=== PATIENT | female | born 1945 | race Caucasian/White ===

== ENCOUNTER 2018-10-27 11:53 | Observation (INO) ==
[2018-10-27 12:50] LABS: Hemoglobin 15.9 gm/dL (12.5-16.0); Mean Cell Volume 86.1 fl (78-100); Mean Corpuscular Hemoglobin 29.8 pg (27-31); Mean Corpuscular Hgb Conc 34.6 g/dl (32-36); Mean Platelet Volume 9.9 fl (8-12.5); Neutrophil # 11.3 K/mm3 (1.3-6.0); Neutrophil % 77.3 % (42-75.0); Platelet Count 387 K/mm3 (150-450); Red Blood Count 5.34 M/mm3 (4.2-5.4); Red Cell Distribution Width 11.9 % (11.5-14.0); White Blood Count 14.7 K/mm3 (4.0-10.5)
[2018-10-27] MEDS ORDERED: NORMAL SALINE 1,000 ML IV ONE (13:02)
[2018-10-27] MEDS ORDERED: INSULIN REGULAR, HUMAN 100 UNITS/ML VIAL IV ONE ×2 (13:03→13:58)
[2018-10-27 13:05] LABS: ALT 24 U/L (19-67); AST 17 U/L (0-48); Alkaline Phosphatase * 151 U/L (50-170); Anion Gap 13.9 mmol/L (6.8-13.8); BUN/Creatinine Ratio 20.8 (9.0-21.6); Bilirubin, Total 0.6 mg/dL (0.0-1.1); Blood Urea Nitrogen 32 mg/dL (3-23); Ca. Corrected For Albumin 9.3 mg/dL (8.4-10.2); Calcium * 9.6 mg/dL (7.9-10.9); Carbon Dioxide 25.6 mmol/L (24-32.6); Chloride 91 mmol/L (97-106); Potassium 4.5 mmol/L (3.4-4.6); Sodium 126 mmol/L (132-142); Total Protein 8.6 gm/dL (6.2-8.2)
[2018-10-27 13:09] LABS: Glucose * 618 mg/dL (70-110)
--- NOTE | 2018-10-27 14:09 | ERNOTE ---
Medical Problem HPI - Narrative Date of Service: 10/27/18 - General Chief Complaint: Diabetes Related Problem Time Seen by Provider: 10/27/18 13:04 Source: patient, family Exam Limitations: no limitations - Immun/Allergies/Home Medications Immunizations: IMMUNIZATION HX Immunizations Up to Date Yes Allergies/Adverse Reactions: Allergies Penicillins Allergy (Severe, Verified 10/27/18 12:07) Hives morphine Adverse Reaction (Mild, Verified 10/27/18 12:07) Nausea Home Medications: HOME MEDICATIONS ALPRAZolam [Xanax] 0.5 mg PO DAILY PRN 10/27/18 [Last Taken Unknown] Atorvastatin Calcium [Lipitor] 80 mg PO DAILY 10/27/18 [Last Taken Unknown] Buspirone HCl 15 mg PO BID 10/27/18 [Last Taken Unknown] Cetirizine HCl [Zyrtec] 10 mg PO DAILY 10/27/18 [Last Taken Unknown] Levothyroxine Sodium [Synthroid] 150 mcg PO DAILY 10/27/18 [Last Taken Unknown] Venlafaxine HCl [Venlafaxine HCl ER] 75 mg PO DAILY 10/27/18 [Last Taken Unknown] traMADol HCL [Tramadol HCl] 50 mg PO TID PRN 10/27/18 [Last Taken Unknown] - History of Present History Narrative: patient presents to ed with c/o of elevated bs, clinic and told her, that her blood sugar was in the six hundreds, has recently had prednisone for a rash , c/o polydyspepiua and poly uria Timing: constant, getting worse Severity: moderate Modifying Factors - (Improves): Present: other - nothing Review of Systems - Review of Systems Constitutional: Present: See HPI, weakness, malaise EYE: Present: no symptoms reported ENT: Present: no symptoms reported Respiratory: Present: no symptoms reported Cardiology: Present: no symptoms reported Gastrointestinal/Abdominal: Present: no symptoms reported Genitourinary: Present: no symptoms reported Musculoskeletal: Present: no symptoms reported Skin: Present: no symptoms reported Neurological: Present: no symptoms reported Endocrine: Present: increased thirst, increased urine Hematologic/Lymphatic: Present: no symptoms reported Psych: Present: no symptoms reported All Other Systems: All systems neg except as marked Medical History (Last Updated 10/27/18 @ 12:08 by Haley Darling RN) Hx of cancer of lung Hx of diabetes mellitus Surgical History: Surgical History (Last Updated 10/27/18 @ 12:08 by Haley Darling RN) History of lobectomy of lung Hx laparoscopic cholecystectomy Hx of heart surgery Family History: Family History (Last Updated 10/27/18 @ 12:09 by Haley Darling RN) Other No pertinent family history Social History: Preferred Language Upper Sorbian Do you have any cheondoism or No cultural preference? Smoking Status Former smoker Alcohol Use none Drug Use none No Social History Section defined Physical Exam - Physical Exam General Appearance: Present: mild distress, anxious Head Exam: Present: normal inspection, no evidence of injury Eye Exam: Normal inspection: bilateral, PERRL: bilateral, EOMI: bilateral Ears, Nose, Throat: Present: normal ENT inspection, normal pharynx Neck: Present: normal inspection, nontender Respiratory: Present: no respiratory distress, normal breath sounds, no accessory muscle use, chest nontender Cardiovascular/Chest: Present: regular rate, rhythm, no murmur, normal peripheral pulses Gastrointestinal/Abdominal: Present: normal bowel sounds, nontender, nondistended, soft, no organomegaly Back Exam: Present: normal inspection, normal range of motion, no CVA tenderness Extremity Exam: Present: normal inspection, non-tender, normal range of motion, no edema Neurological Exam: Present: alert, oriented, normal mood/affect, no motor/sensory deficits Skin Exam: Present: normal color, warm/dry Lymphatic Exam: Present: no adenopathy Progress - Date and Time Seen: Date and Time: 10/27/18 15:09 patient improved, discussed labs with rco and dr mcallister, to be admitted to observation - Results and Orders Patient's Lab Results:: I have reviewed the patient's lab results. - Vital Signs Vital Signs: Vital Signs 10/27/18 12:03 10/27/18 12:06 Temperature 36.6 C 36.6 C Pulse Rate 91 Respiratory Rate 17 17 Blood Pressure 151/66 H 151/66 H O2 Sat by Pulse Oximetry 97 - X-Ray X-Ray #1 X-Ray: chest - no acute process - Progress/Reassessment Chief Complaint: Diabetes Related Problem - Transfer of Care Expected Disposition: Admit Plan - Plan Plan: to admit Departure Clinical Impression: Hyperglycemia due to type 2 diabetes mellitus - Departure Disposition: Still a patient Condition: Stable
[2018-10-27] MEDS ORDERED: NORMAL SALINE 1,000 ML IV PRN ×2 (14:21→20:58)
[2018-10-27 14:54] LABS: Urine Bilirubin Negative (NEGATIVE); Urine Blood Negative /ul (NEGATIVE); Urine Ketone Negative (NEGATIVE); Urine Nitrite Negative (NEGATIVE); Urine Protein Negative (NEGATIVE); Urine Urobilinogen Normal (NORMAL)
[2018-10-27 15:09] LABS: Urine Appearance Clear (CLEAR); Urine Bacteria 1+; Urine Color Yellow; Urine RBC TRACE /hpf (0-5); Urine WBC 0-5 /hpf (0-5)
[2018-10-27] MEDS: NORMAL SALINE 1,000 ML IV PRN ×2 (15:51→19:53)
[2018-10-27] MEDS: INSULIN REGULAR, HUMAN 100 UNITS/ML VIAL SC SCH ×2 (17:17→20:34)
[2018-10-27] MEDS ORDERED: traZODone HCL 50 MG TABLET PO PRN (18:41)
[2018-10-27] MEDS ORDERED: ALPRAZolam 0.5 MG TABLET PO PRN (18:41)
[2018-10-27] MEDS ORDERED: traMADol HCL 50 MG TABLET PO PRN (18:41)
[2018-10-27] MEDS ORDERED: ONDANSETRON 8 MG TAB.RAPDIS PO PRN (18:44)
--- NOTE | 2018-10-27 19:06 | HP ---
Chief Complaint - Chief Complaint Date of Service: 10/27/18 Time of Service: 17:30 Chief Complaint: severe hyperglycemia History of Present Illness: Gill Saldaña is a 72-year-old female who is found to have blood sugars in excess of 500. She was weak and dry and had not been urinating. She was evaluated in the emergency room, rehydrated, given 8 units of insulin twice IV and then is admitted to observation. She had been taking prednisone for an inflammatory condition and this is what raised her blood sugars so dramatically. She only takes a sulfonylurea once a day. She has a history of having been on insulin but was taken off of that some time ago. Medical History (Last Reviewed 10/27/18 @ 15:46 by Marcial Dumont RN) Hx of cancer of lung Hx of diabetes mellitus Surgical History: Surgical History (Last Reviewed 10/27/18 @ 15:46 by Marcial Dumont RN) History of lobectomy of lung Hx laparoscopic cholecystectomy Hx of heart surgery Family History: Family History (Last Reviewed 10/27/18 @ 15:46 by Marcial Dumont RN) Other No pertinent family history Social History: Patient Lives/Resources Home Utilized Occupation Retired Preferred Language Occitan Do you have any evangelical or Yes: [facility] cultural preference? Smoking Status Former smoker Have you smoked in the past 12 No months Do you dip or chew tobacco No Alcohol Use none Drug Use none No Social History Section defined Review Of Systems (GEN) - Review of Systems Generalized/Overall Review: Present: Weakness, Malaise, Fatigue EENTM: Present: No Symptoms Reported Respiratory: Present: Shortness of Breath Cardiac: Present: No Symptoms Reported Abdominal: Present: Nausea. Absent: Vomiting Genitourinary: Present: Oliguria Musculoskeletal: Present: Joint Pain Neurological: Present: No Symptoms Reported Skin: Present: Dryness Endocrine: Present: No Symptoms Reported Misc: All systems neg except as marked - She does have a history of situational stress, major depressive disorder and anxiety. Immunizations: IMMUNIZATION HX Immunizations Up to Date Yes Allergies/Adverse Reactions: Allergies Allergy/AdvReac Type Severity Reaction Status Date / Time Penicillins Allergy Severe Hives Verified 10/27/18 15:46 morphine AdvReac Mild Nausea Verified 10/27/18 15:46 Home Medications: HOME MEDICATIONS ALPRAZolam [Xanax] 0.5 mg PO DAILY PRN 10/27/18 [Last Taken Unknown] Atorvastatin Calcium [Lipitor] 80 mg PO DAILY 10/27/18 [Last Taken Unknown] Buspirone HCl 15 mg PO BID 10/27/18 [Last Taken Unknown] Cetirizine HCl [Zyrtec] 10 mg PO DAILY 10/27/18 [Last Taken Unknown] Levothyroxine Sodium [Synthroid] 150 mcg PO DAILY 10/27/18 [Last Taken Unknown] Venlafaxine HCl [Venlafaxine HCl ER] 75 mg PO DAILY 10/27/18 [Last Taken Unknown] traMADol HCL [Tramadol HCl] 50 mg PO TID PRN 10/27/18 [Last Taken Unknown] traZODone HCL [Trazodone HCl] 50 mg PO HS PRN 10/27/18 [Last Taken Unknown] Exam - Exam Vital Signs: Vital Signs - Last Taken Temp 36.5 C 10/27/18 15:36 Pulse 80 10/27/18 15:56 Resp 18 10/27/18 15:36 BP 138/65 10/27/18 15:36 Pulse Ox 94 10/27/18 15:36 Constitutional: Present: Alert, Oriented x3, Cooperative, Well developed, Well nourished, No distress ENT Exam: Present: normal ENT inspection, hearing grossly normal, pharynx normal, TMs normal Eye Exam: bilateral eye: normal inspection, PERRL, EOMI Neck: Present: non-tender, full range of motion, supple, normal inspection Back Exam: Present: normal inspection, no CVA tenderness Breasts: Present: Exam deferred Respiratory: Present: chest non-tender, lungs clear, normal breath sounds, no respiratory distress, no accessory muscle use Cardiovascular/Chest: Present: normal peripheral pulses, regular rate, rhythm, no chest tenderness, no edema, no gallop, no JVD, no murmur, no rub Peripheral Pulses: carotid (R): 2+, carotid (L): 2+, radial (R): 2+, radial (L): 2+ Abdomen: Present: Normal bowel sounds, soft, nontender, nondistended, no rebound tenderness, no hepatospenomegaly, no masses /Rectal: Present: Exam deferred Extremity: Present: normal range of motion, non-tender, normal inspection, no pedal edema, no calf tenderness Skin Exam: Present: normal color, warm/dry, no cyanosis Lymphatic: Present: no adenopathy 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, normal cerebellar test, no motor/sensory deficits, alert, normal mood/affect, oriented x 3 Appearance: Present: appropriate appearance, appropriate insight, neat, no memory impairment Eye contact: Present: cooperative, good eye contact, normal speech Thoughts: Present: normal thought pattern, no apparent hallucination Diagnostic Studies: Abnormal Lab Results 10/27/18 10/27/18 10/27/18 Range/Units 12:42 12:42 12:42 WBC 14.7 H (4.0-10.5) K/mm3 Immature Gran % (Auto) 1.10 H (0.001-0.429) % Immature Gran # (Auto) 0.16 H (0.000-0.0310) K/mm3 Neutrophils % 77.3 H (42-75.0) % Lymphocytes % 12.1 L (20-51) % Neutrophils # 11.3 H (1.3-6.0) K/mm3 Monocytes # 1.1 H (0.0-1.0) k/mm3 HCO3 (21.0-28.0) mmol/L Base Excess (-2.0-3.0) mmol/L VBG pH 7.260 L (7.32-7.43) Sodium 126 L (132-142) mmol/L Chloride 91 L (97-106) mmol/L Anion Gap 13.9 H (6.8-13.8) mmol/L BUN 32 H (3-23) mg/dL Creatinine 1.54 H (0.4-1.4) mg/dL Est GFR (Non-Af Amer) 35 L (60-130) mL/min Random Glucose 618 H* (70-110) mg/dL Total Protein 8.6 H (6.2-8.2) gm/dL Urine Glucose (UA) (NEGATIVE) mg/dL Ur Leukocyte Esterase (NEGATIVE) /ul Urine Bacteria (NONE) 10/27/18 10/27/18 10/27/18 Range/Units 13:00 14:49 15:15 WBC (4.0-10.5) K/mm3 Immature Gran % (Auto) (0.001-0.429) % Immature Gran # (Auto) (0.000-0.0310) K/mm3 Neutrophils % (42-75.0) % Lymphocytes % (20-51) % Neutrophils # (1.3-6.0) K/mm3 Monocytes # (0.0-1.0) k/mm3 HCO3 18.2 L (21.0-28.0) mmol/L Base Excess -6.2 L (-2.0-3.0) mmol/L VBG pH (7.32-7.43) Sodium (132-142) mmol/L Chloride (97-106) mmol/L Anion Gap (6.8-13.8) mmol/L BUN (3-23) mg/dL Creatinine (0.4-1.4) mg/dL Est GFR (Non-Af Amer) (60-130) mL/min Random Glucose 333 H D (70-110) mg/dL Total Protein (6.2-8.2) gm/dL Urine Glucose (UA) >=1000 H (NEGATIVE) mg/dL Ur Leukocyte Esterase 25 H (NEGATIVE) /ul Urine Bacteria 1+ H (NONE) Laboratory Results WBC 14.7 K/mm3 (4.0-10.5) H 10/27/18 12:42 RBC 5.34 M/mm3 (4.2-5.4) 10/27/18 12:42 Hgb 15.9 gm/dL (12.5-16.0) 10/27/18 12:42 Hct 46.0 % (37.0-47.0) 10/27/18 12:42 MCV 86.1 fl (78-100) 10/27/18 12:42 MCH 29.8 pg (27-31) 10/27/18 12:42 MCHC 34.6 g/dl (32-36) 10/27/18 12:42 RDW 11.9 % (11.5-14.0) 10/27/18 12:42 Plt Count 387 K/mm3 (150-450) 10/27/18 12:42 MPV 9.9 fl (8-12.5) 10/27/18 12:42 Immature Gran % (Auto) 1.10 % (0.001-0.429) H 10/27/18 12:42 Immature Gran # (Auto) 0.16 K/mm3 (0.000-0.0310) H 10/27/18 12:42 Neutrophils % 77.3 % (42-75.0) H 10/27/18 12:42 Lymphocytes % 12.1 % (20-51) L 10/27/18 12:42 Monocytes % 7.3 % (0.0-9) 10/27/18 12:42 Eosinophils % 1.4 % (0.0-3.0) 10/27/18 12:42 Basophils % 0.8 % (0.0-1.0) 10/27/18 12:42 Nucleated RBC % 0.0 k/mm3 (0-1) 10/27/18 12:42 Neutrophils # 11.3 K/mm3 (1.3-6.0) H 10/27/18 12:42 Lymphocytes # 1.77 k/mm3 (1.5-3.5) 10/27/18 12:42 Monocytes # 1.1 k/mm3 (0.0-1.0) H 10/27/18 12:42 Eosinophils # 0.2 k/mm3 (0.0-0.7) 10/27/18 12:42 Absolute Basophils 0.1 k/mm3 (0.0-0.1) 10/27/18 12:42 pCO2 32.9 mmHg (32.0-45.0) 10/27/18 13:00 pO2 88.1 mmHg (83.0-108.0) 10/27/18 13:00 HCO3 18.2 mmol/L (21.0-28.0) L 10/27/18 13:00 Total CO2 19.2 mmol/L (19.0-24.0) 10/27/18 13:00 Base Excess -6.2 mmol/L (-2.0-3.0) L 10/27/18 13:00 ABG pH 7.36 (7.35-7.45) 10/27/18 13:00 ABG O2 Sat (Measured) 96.5 % (94.0-98.0) 10/27/18 13:00 VBG pH 7.260 (7.32-7.43) L 10/27/18 12:42 Sodium 126 mmol/L (132-142) L 10/27/18 12:42 Plasma Sodium 134 mmol/L (130-142) 10/27/18 12:42 Potassium 4.5 mmol/L (3.4-4.6) 10/27/18 12:42 Chloride 91 mmol/L (97-106) L 10/27/18 12:42 Carbon Dioxide 25.6 mmol/L (24-32.6) 10/27/18 12:42 Anion Gap 13.9 mmol/L (6.8-13.8) H 10/27/18 12:42 BUN 32 mg/dL (3-23) H 10/27/18 12:42 Creatinine 1.54 mg/dL (0.4-1.4) H 10/27/18 12:42 Est GFR (Non-Af Amer) 35 mL/min (60-130) L 10/27/18 12:42 BUN/Creatinine Ratio 20.8 (9.0-21.6) 10/27/18 12:42 Random Glucose 333 mg/dL (70-110) H D 10/27/18 15:15 Calcium 9.6 mg/dL (7.9-10.9) 10/27/18 12:42 Calcium Adj for Albumin 9.3 mg/dL (8.4-10.2) 10/27/18 12:42 Total Bilirubin 0.6 mg/dL (0.0-1.1) 10/27/18 12:42 AST 17 U/L (0-48) 10/27/18 12:42 ALT 24 U/L (19-67) 10/27/18 12:42 Alkaline Phosphatase 151 U/L (50-170) 10/27/18 12:42 Total Protein 8.6 gm/dL (6.2-8.2) H 10/27/18 12:42 Albumin 4.0 gm/dl (3.4-5.0) 10/27/18 12:42 Urine Color Yellow 10/27/18 14:49 Urine Appearance Clear (CLEAR) 10/27/18 14:49 Urine pH 6.0 pH (5.0-7.0) 10/27/18 14:49 Ur Specific [place] 1.010 SP.GR. (1.005-1.010) 10/27/18 14:49 Urine Protein Negative mg/dL (NEGATIVE) 10/27/18 14:49 Urine Glucose (UA) >=1000 mg/dL (NEGATIVE) H 10/27/18 14:49 Urine Ketones Negative mg/dL (NEGATIVE) 10/27/18 14:49 Urine Blood Negative /ul (NEGATIVE) 10/27/18 14:49 Urine Nitrate Negative (NEGATIVE) 10/27/18 14:49 Urine Bilirubin Negative mg/dl (NEGATIVE) 10/27/18 14:49 Urine Urobilinogen Normal EU/dl (NORMAL) 10/27/18 14:49 Ur Leukocyte Esterase 25 /ul (NEGATIVE) H 10/27/18 14:49 Urine RBC Trace /hpf (0-5) 10/27/18 14:49 Urine WBC 0-5 /hpf (0-5) 10/27/18 14:49 Ur Epithelial Cells Trace /hpf (0-5) 10/27/18 14:49 Urine Bacteria 1+ (NONE) H 10/27/18 14:49 Urine Culture Comments Culture to follow 10/27/18 14:49 Serum Ketones Negative (NEGATIVE) 10/27/18 12:42 Assessment/Plan - Narrative Narrative: 1. Monitor blood glucose. 2. Start back on [place] per id. tomorrow morning 3. Check blood sugar now to determine whether more short acting insulin may be required 4. Progress activity and diet as tolerated - Assessment/Plan (1) Hyperglycemia due to type 2 diabetes mellitus Problem: Acute (2) Dehydration Problem: Acute (3) Lightheadedness Problem: Acute
[2018-10-27] MEDS: busPIRone HCL 5 MG TABLET PO SCH (20:38)
[2018-10-27] MEDS: ACETAMINOPHEN 500 MG TABLET PO PRN (21:43)
[2018-10-28 05:23] LABS: Hematocrit 39.2 % (37.0-47.0); Hemoglobin 13.6 gm/dL (12.5-16.0); Mean Cell Volume 87.1 fl (78-100); Mean Corpuscular Hemoglobin 30.2 pg (27-31); Mean Corpuscular Hgb Conc 34.7 g/dl (32-36); Mean Platelet Volume 9.5 fl (8-12.5); Neutrophil # 8.2 K/mm3 (1.3-6.0); Neutrophil % 67.4 % (42-75.0); Platelet Count 324 K/mm3 (150-450); Red Cell Distribution Width 11.9 % (11.5-14.0); White Blood Count 12.2 K/mm3 (4.0-10.5)
[2018-10-28 05:27] LABS: Anion Gap 9.3 mmol/L (6.8-13.8); BUN/Creatinine Ratio 21.2 (9.0-21.6); Carbon Dioxide 25.8 mmol/L (24-32.6); Estimated Creat Clear 39.9; Potassium 4.1 mmol/L (3.4-4.6)
[2018-10-28] MEDS: INSULIN REGULAR, HUMAN 100 UNITS/ML VIAL SC SCH ×2 (06:49→12:02)
[2018-10-28] MEDS ORDERED: LEVOTHYROXINE SODIUM 100 MCG TABLET ONE (06:52)
[2018-10-28] MEDS ORDERED: LEVOTHYROXINE SODIUM 50 MCG TABLET ONE (06:52)
[2018-10-28] MEDS: ACETAMINOPHEN 500 MG TABLET PO PRN (06:53)
[2018-10-28] MEDS: LEVOTHYROXINE SODIUM 150 MCG TABLET PO SCH ×2 (06:53→06:56)
[2018-10-28] MEDS ORDERED: GLIMEPIRIDE 4 MG TABLET PO SCH (09:00)
[2018-10-28] MEDS ORDERED: LORATADINE 10 MG TABLET PO SCH (09:00)
[2018-10-28] MEDS ORDERED: VENLAFAXINE HCL 37.5 MG CAP.SR.24H PO SCH (09:00)
[2018-10-28] MEDS: busPIRone HCL 5 MG TABLET PO SCH (09:04)
--- NOTE | 2018-10-28 11:18 | DS ---
(1) Hyperglycemia due to type 2 diabetes mellitus Problem: Acute Qualifiers: Diabetes mellitus senior care insulin use: without buttermaker continuous churn use Qualified Code(s): E11.65 - Type 2 diabetes mellitus with hyperglycemia (2) Dehydration Problem: Resolved (3) Lightheadedness Problem: Resolved Description of Stay: Gill aSldaña is a 72-year-old female admitted with dehydration, weakness, lightheadedness, and hyperglycemia. She has been given IV fluids and is rehydrated. She's feeling a lot better. Her lightheadedness seems to be gone and her weakness improved. Her blood sugars are down to 197 this morning. She is establishing with a new PCP and will be seeing that provider within the next couple of weeks. I will continue her on oral medications at this time but I discussed the probability that she will need to be on insulin. She has taken insulin in the past and her blood sugars were better controlled. She hasn't taken it for over a year. Procedures Performed: none Results and Findings: Pending Mircobiology Results 10/27/18 14:45 Urine,Voided Urine Culture - Preliminary Ruling Out Pathogen Lab Pending Results 10/27/18 12:42: WBC 14.7 H, RBC 5.34, Hgb 15.9, Hct 46.0, MCV 86.1, MCH 29.8, MCHC 34.6, RDW 11.9, Plt Count 387, MPV 9.9, Immature Gran % (Auto) 1.10 H, Immature Gran # (Auto) 0.16 H, Neutrophils % 77.3 H, Lymphocytes % 12.1 L, Monocytes % 7.3, Eosinophils % 1.4, Basophils % 0.8, Nucleated RBC % 0.0, Hiren trophils # 11.3 H, Lymphocytes # 1.77, Monocytes # 1.1 H, Eosinophils # 0.2, Absolute Basophils 0.1 10/27/18 12:42: VBG pH 7.260 L 10/27/18 12:42: Sodium 126 L, Plasma Sodium 134, Potassium 4.5, Chloride 91 L, Carbon Dioxide 25.6, Anion Gap 13.9 H, BUN 32 H, Creatinine 1.54 H, Est GFR (Non-Af Amer) 35 L, BUN/Creatinine Ratio 20.8, Random Glucose 618 H*, Calcium 9.6, Calcium Adj for Albumin 9.3, Total Bilirubin 0.6, AST 17, ALT 24, Alkaline Phosphatase 151, Total Protein 8.6 H, Albumin 4.0, Serum Ketones Negative 10/27/18 13:00: pCO2 32.9, pO2 88.1, HCO3 18.2 L, Total CO2 19.2, Base Excess - 6.2 L, ABG pH 7.36, ABG O2 Sat (Measured) 96.5 10/27/18 14:49: Urine Color Yellow, Urine Appearance Clear, Urine pH 6.0, Ur Specific [place] 1.010, Urine Protein Negative, Urine Glucose (UA) >=1000 H, Urine Ketones Negative, Urine Blood Negative, Urine Nitrate Negative, Urine Bilirubin Negative, Urine Urobilinogen Normal, Ur Leukocyte Esterase 25 H, Urine RBC Trace, Urine WBC 0-5, Ur Epithelial Cells Trace, Urine Bacteria 1+ H, Urine Culture Comments Culture to follow 10/27/18 15:15: Random Glucose 333 H D 10/28/18 05:05: WBC 12.2 H, RBC 4.50, Hgb 13.6, Hct 39.2, MCV 87.1, MCH 30.2, MCHC 34.7, RDW 11.9, Plt Count 324, MPV 9.5, Immature Gran % (Auto) 0.90 H, Immature Gran # (Auto) 0.11 H, Neutrophils % 67.4, Lymphocytes % 20.1, Monocytes % 7.7, Eosinophils % 3.4 H, Basophils % 0.5, Nucleated RBC % 0.0, Neutrophils # 8.2 H, Lymphocytes # 2.46, Monocytes # 0.9, Eosinophils # 0.4, Absolute Basophils 0.1 10/28/18 05:05: Sodium 139, Plasma Sodium 141, Potassium 4.1, Chloride 108 H, Carbon Dioxide 25.8, Anion Gap 9.3, BUN 22, Creatinine 1.04, Est GFR (Non-Af Amer) 55 L D, BUN/Creatinine Ratio 21.2, Random Glucose 197 H D, Calcium 8.0 Discharge Location: Home Disposition: Home self-care Condition: Stable Discharge Activity: Activity as tolerated Discharge Diet: Consistent carbs Referrals: Navin Cosby MD [Primary Care Provider] - Additional Patient Instructions (free text): Make an appointment to see your new PCP within the next 2 weeks.-Please make TCM appointment unless penitentiary discharge. Thank you! Crystal @ [phone]. Complete Home Medications List: Complete Home Medication List: ALPRAZolam [Xanax] 0.5 mg PO DAILY PRN 10/27/18 Atorvastatin Calcium [Lipitor] 80 mg PO DAILY 10/27/18 Buspirone HCl 15 mg PO BID 10/27/18 Cetirizine HCl [Zyrtec] 10 mg PO DAILY 10/27/18 Venlafaxine HCl [Venlafaxine HCl ER] 75 mg PO DAILY 10/27/18 traMADol HCL [Tramadol HCl] 50 mg PO TID PRN 10/27/18 traZODone HCL [Trazodone HCl] 50 mg PO HS PRN 10/27/18 Acetaminophen [Tylenol] 500 mg PO Q6H PRN tab 10/28/18 Glimepiride [Amaryl] 8 mg PO DAILY #60 tab 10/28/18 Ondansetron [Zofran Odt] 8 mg PO Q6H PRN tab.rapdis 10/28/18
[2018-10-28 14:45] VITALS: BP 148/65
== END 2018-10-28 14:49 | disposition home or self-care (01) ==
LOC: ER 11:53 → MS 14:46 → INTOOBSV 14:46 → MS 15:30
PROVIDERS: ADMIT Family Medicine; ATTEND Family Medicine
CPT/HCPCS: 36415; 36600; 80048; 80053; 81001; 82009; 82800; 82803; 82947; 85025; 87077; 87086; 87186; 93005; 96360; 96361; 96372; 99285; G0378

== ENCOUNTER 2019-11-17 13:04 | Inpatient (IN) ==
[2019-11-17 13:35] LABS: Hematocrit 38.6 % (37.0-47.0); Hemoglobin 13.2 gm/dL (12.5-16.0); Mean Cell Volume 89.1 fl (78-100); Mean Corpuscular Hemoglobin 30.5 pg (27-31); Mean Corpuscular Hgb Conc 34.2 g/dl (32-36); Mean Platelet Volume 8.9 fl (8-12.5); Neutrophil # 7.8 K/mm3 (1.3-6.0); Neutrophil % 71.1 % (42-75.0); Platelet Count 384 K/mm3 (150-450); Red Blood Count 4.33 M/mm3 (4.2-5.4); Red Cell Distribution Width 12.4 % (11.5-14.0)
[2019-11-17 13:38] LABS: Urine Bilirubin 1 mg/dl (NEGATIVE); Urine Blood Negative /ul (NEGATIVE); Urine Ketone 15 mg/dL (NEGATIVE); Urine Nitrite Negative (NEGATIVE); Urine Protein 30 mg/dL (NEGATIVE); Urine Specific Gravity 1.025 SP.GR. (1.005-1.010); Urine Urobilinogen Normal (NORMAL)
[2019-11-17 13:48] LABS: Urine Color Yellow
[2019-11-17 13:49] LABS: Urine Appearance Cloudy (CLEAR); Urine Bacteria 3+; Urine RBC None Seen /hpf (0-5); Urine WBC 25-50 /hpf (0-5)
[2019-11-17 13:51] LABS: ALT 14 U/L (19-67); AST 17 U/L (0-48); Albumin * 3.3 gm/dl (3.4-5.0); Alkaline Phosphatase * 96 U/L (50-170); Anion Gap 18.1 mmol/L (6.8-13.8); BUN/Creatinine Ratio 16.8 (9.0-21.6); Bilirubin, Total 0.5 mg/dL (0.0-1.1); Blood Urea Nitrogen 25 mg/dL (3-23); Ca. Corrected For Albumin 8.9 mg/dL (8.4-10.2); Calcium * 8.7 mg/dL (7.9-10.9); Chloride 99 mmol/L (97-106); Glucose * 206 mg/dL (70-110); Magnesium 0.9 mg/dL (1.2-2.8); Potassium 4.1 mmol/L (3.4-4.6); Sodium 137 mmol/L (132-142); Total Protein 7.6 gm/dL (6.2-8.2)
[2019-11-17] MEDS ORDERED: NORMAL SALINE 1,000 ML IV ONE ×3 (14:05→16:08)
[2019-11-17] MEDS ORDERED: cefTRIAXone SODIUM 1,000 MG/100 ML BAG IV ONE (14:06)
[2019-11-17] MEDS ORDERED: NORMAL SALINE IV ONE ×2 (14:06→14:23)
[2019-11-17] MEDS ORDERED: ONDANSETRON HCL/PF 2 MG/ML VIAL IV ONE (14:13)
--- NOTE | 2019-11-17 14:22 | ERNOTE ---
Neuro HPI ER Record Presenting Symptoms: weakness, confusion Time Seen by Provider: 11/17/19 13:14 Source: patient, family Exam Limitations: clinical condition Immunizations: IMMUNIZATION HX Immunizations Up to Date Yes History of Influenza Vaccine Yes Hx Pneumococcal Vaccination Yes Allergies/Adverse Reactions: Allergies Allergy/AdvReac Type Severity Reaction Status Date / Time Penicillins Allergy Severe Hives Verified 03/10/19 13:27 morphine AdvReac Mild Nausea Verified 03/10/19 13:27 Home Medications: HOME MEDICATIONS Atorvastatin Calcium [Lipitor] 80 mg PO DAILY 10/27/18 [Last Taken 02/24/19] traMADol HCL [Tramadol HCl] 50 mg PO BID 10/27/18 [Last Taken 02/24/19] Aspirin [Aspirin Chewable] 81 mg PO DAILY 11/17/19 [Last Taken Unknown] Levothyroxine Sodium [Synthroid] 75 mcg PO DAILY 11/17/19 [Last Taken Unknown] Metoprolol Tartrate [Lopressor] 25 mg PO BID 11/17/19 [Last Taken Unknown] glipiZIDE [Glipizide] 10 mg PO HS 11/17/19 [Last Taken Unknown] glipiZIDE [Glipizide] 20 mg PO DAILY 11/17/19 [Last Taken Unknown] - History of Present Illness Narrative: Daughter states that for approximately the last 24 hours her mother has not been feeling well. However starting today she is gotten progressively more confused and not very responsive. Onset: gradual onset Severity: severe - Character of Deficits Additional Deficits: Present: decrease ability to stand Baseline Cognition: Present: alert, oriented x 4 Baseline Gait: Present: walks w/o assistance Associated Symptoms: Denies: fever/chills Review of Systems - Review of Systems Constitutional: Present: See HPI EYE: Present: no symptoms reported ENT: Present: no symptoms reported Respiratory: Present: no symptoms reported Cardiology: Present: no symptoms reported Gastrointestinal/Abdominal: Present: no symptoms reported Genitourinary: Present: no symptoms reported Musculoskeletal: Present: no symptoms reported Skin: Present: no symptoms reported Neurological: Present: See HPI Endocrine: Present: no symptoms reported Hematologic/Lymphatic: Present: no symptoms reported Psych: Present: no symptoms reported Medical History (Last Reviewed 11/17/19 @ 14:05 by Haley Darling RN) Anxiety Coronary artery disease High cholesterol Hx of cancer of lung Hx of diabetes mellitus Left shoulder pain Onset Date: Unknown Surgical History: Surgical History (Last Reviewed 11/17/19 @ 14:05 by Haley Darling RN) History of lobectomy of lung Hx laparoscopic cholecystectomy Hx of heart surgery S/P trigger finger release Onset Date: 02/25/19 left thumb-Dr. Mason S/P triple vessel bypass Family History: Family History (Last Reviewed 11/17/19 @ 14:05 by Haley Darling RN) Father Myocardial infarction Mother Diabetes Other No pertinent family history Social History: (Last Reviewed 11/17/19 @ 14:05 by Haley Darling RN) Social History: Marital status: / household members: none current occupational status: retired Highest education level completed: high school graduate Service: No Tobacco: Smoking Status: Former smoker Alcohol: alcohol intake: never Substance Use: substance use type: does not use Dietary Habits: caffeine: No Physical Exam - Physical Exam General Appearance: Present: wd/wn, alert, moderate distress Head Exam: Present: normal inspection, no evidence of injury Eye Exam: Normal inspection: bilateral, PERRL: bilateral Ears, Nose, Throat: Present: normal pharynx, dry mucous membranes Neck: Present: normal inspection, nontender Respiratory: Present: no respiratory distress, normal breath sounds, no accessory muscle use, chest nontender, lungs clear, other - Tachypneic Cardiovascular/Chest: Present: regular rate, rhythm, no murmur, normal peripheral pulses Gastrointestinal/Abdominal: Present: normal bowel sounds, nontender, nondistended, soft, no organomegaly Rectal Exam: Present: deferred Back Exam: Present: normal inspection, normal range of motion Extremity Exam: Present: normal inspection, non-tender, no edema, normal range of motion Neurological Exam: Present: disoriented to person Skin Exam: Present: normal color, warm/dry Lymphatic Exam: Present: no adenopathy Progress - Results and Orders Patient's Lab Results:: I have reviewed the patient's lab results. - Vital Signs Patient's Vital Signs:: I have reviewed the patient's vital signs. Vital Signs: Vital Signs 11/17/19 13:05 11/17/19 13:18 11/17/19 13:19 Temperature 36.9 C Pulse Rate 94 100 90 Respiratory Rate 37 H 22 H Blood Pressure 158/63 H O2 Sat by Pulse Oximetry 100 100 - X-Ray X-Ray #1 X-Ray: chest Interpretation: Reviewed by me - CT/Ultrasound CT/Ultrasound Narrative: CT the head was reviewed by me - Progress/Reassessment Chief Complaint: Altered Mental Status Plan - Plan Plan: Patient will be admitted to a medical monitored bed to continue antibiotics and the sepsis IV fluids protocol. Departure Clinical Impression: Sepsis Qualifiers: Sepsis type: sepsis due to unspecified organism Sepsis acute organ dysfunction status: without acute organ dysfunction Qualified Code(s): A41.9 - Sepsis, unspecified organism UTI (urinary tract infection) Qualifiers: Urinary tract infection type: acute pyelonephritis Qualified Code(s): N10 - Acute pyelonephritis - Departure Disposition: Still a patient Condition: Fair Referrals: Navin Cosby MD [Primary Care Provider] - Critical Care Note - Critical Care Note Total Time (mins): 35 Comments: Patient appears to have evolving sepsis secondary to her UTI. She was given the sepsis IV fluid protocol will be started on IV antibiotics
[2019-11-17] MEDS ORDERED: ACETAMINOPHEN 325 MG TABLET PO PRN (16:02)
--- NOTE | 2019-11-17 16:20 | HP ---
Chief Complaint - Chief Complaint Date of Service: 11/17/19 Time of Service: 16:13 Chief Complaint: Altered Mental Status History of Present Illness: 73 y/o F with PMHX of CAD s/p triple vessel bypass, NIDDM Type II, HTN, HLD, MDD, & GABRIEL Admitted for Sepsis most likely secondary to UTI and suspected Community Acquired Pneumonia. Daughter is at bedside and she is the historian. States she has not seen her mother in 2 weeks, but when she returned, mother had spent the last 3 days sleeping, decreased appetite and NBNB emesis. When she was about to leave the house and bring her to the ER, patient started to appear confused and searching for random stuff, followed by expressive aphasia, described as jumbled words. No other neurological deficits appreciated. On arrival to the ER, patient was normotensive, tachypneic (22), afebrile with a HR < 100bpm, SpO2 @ 98-100 on RA . Patient was worked up for acute CVA and infection. CT head ruled out acute bleed. Labs obtain were significant for Lactic Acid of 3.0, [place] [address], Hyperglycemia of 204, Dehydration due to and mild increase in Cr from baseline of 1.30 to 1.43, ABG showed pCO2 of 16, UA demonstrated infection and CXR suggested small left sided pleural effusion. Due to her presention and an increased anion gap along with her history of NIDDM Type II, DKA was ruled out, no ketones appreciated on labs. Managed and fluid resuscitated according to sepsis protocol, and started on Rocephin 1 gram. On arrival to the floor, BP was 177/85, remaining VSS, and breathing in not labored, however patient is hard to understand. Appears as patient was c/o CP, daughter stated earlier patient has described pain in her chest and left arm. STAT EKG, Cardiac Panel ordered, given aspirin 325 mg and Nitro SL. Complete Neurological exam completed and significant for expressive aphasia with NIHSS of 1. This could be most likely AMS due to Sepsis. Remaining PE was largely unremarkable. Discussed management to both daughter and patient and voiced understanding. Medical History (Last Reviewed 11/17/19 @ 15:40 by Marcial Dumont RN) Anxiety Coronary artery disease High cholesterol Hx of cancer of lung Hx of diabetes mellitus Left shoulder pain Onset Date: Unknown Surgical History: Surgical History (Last Reviewed 11/17/19 @ 15:40 by Marcial Dumont RN) History of lobectomy of lung Hx laparoscopic cholecystectomy Hx of heart surgery S/P trigger finger release Onset Date: 02/25/19 left thumb-Dr. Mason S/P triple vessel bypass Family History: Family History (Last Reviewed 11/17/19 @ 15:05 by Mary Ellen Jaramillo RN) Father Myocardial infarction Mother Diabetes Other No pertinent family history Social History: (Last Reviewed 11/17/19 @ 15:06 by Mary Ellen Jaramillo RN) Social History: Marital status: / household members: none current occupational status: retired Highest education level completed: high school graduate Service: No Tobacco: Smoking Status: Former smoker Alcohol: alcohol intake: never Substance Use: substance use type: does not use Dietary Habits: caffeine: No Review Of Systems (GEN) - Review of Systems Generalized/Overall Review: Present: Weakness, Fatigue Respiratory: Absent: Cough, Shortness of Breath, Orthopnea Cardiac: Present: Chest Pain. Absent: Edema, Palpitations Abdominal: Present: Nausea, Vomiting. Absent: Abdominal Pain, Constipation, Diarrhea Genitourinary: Present: Incontinent. Absent: Burning, Itching, Urgency, Frequency Musculoskeletal: Absent: Joint Pain, Back Pain, Joint Swelling Neurological: Present: Headache, Anxiety, Depressed, Emotional Problems, Weakness. Absent: Pre-existing Deficit Skin: Present: Dryness Endocrine: Present: Intolerance to Cold Immunizations: IMMUNIZATION HX Immunizations Up to Date Yes History of Influenza Vaccine Yes Hx Pneumococcal Vaccination Yes Allergies/Adverse Reactions: Allergies Allergy/AdvReac Type Severity Reaction Status Date / Time Penicillins Allergy Severe Hives Verified 11/17/19 15:06 morphine AdvReac Mild Nausea Verified 11/17/19 15:06 Home Medications: HOME MEDICATIONS Atorvastatin Calcium [Lipitor] 80 mg PO DAILY 10/27/18 [Last Taken 02/24/19] traMADol HCL [Tramadol HCl] 50 mg PO BID 10/27/18 [Last Taken 02/24/19] Aspirin [Aspirin Chewable] 81 mg PO DAILY 11/17/19 [Last Taken Unknown] Levothyroxine Sodium [Synthroid] 75 mcg PO DAILY 11/17/19 [Last Taken Unknown] Metoprolol Tartrate [Lopressor] 25 mg PO BID 11/17/19 [Last Taken Unknown] Venlafaxine HCl [Venlafaxine HCl ER] 150 mg PO DAILY 11/17/19 [Last Taken Unknown] glipiZIDE [Glipizide] 10 mg PO HS 11/17/19 [Last Taken Unknown] glipiZIDE [Glipizide] 20 mg PO DAILY 11/17/19 [Last Taken Unknown] metFORMIN HCL [Metformin ER Osmotic] 500 mg PO BID 11/17/19 [Last Taken Unknown] Exam - Exam Vital Signs: Vital Signs - Last Taken Temp 36.6 C 11/17/19 15:06 Pulse 101 H 11/17/19 15:47 Resp 18 11/17/19 15:06 BP 171/85 H 11/17/19 15:06 Pulse Ox 100 11/17/19 15:06 Constitutional: Present: Alert, Oriented x3, Cooperative, Elderly ENT Exam: Present: hearing grossly normal Eye Exam: bilateral eye: normal inspection, PERRL, EOMI Neck: Present: non-tender, full range of motion, supple Back Exam: Present: normal inspection. Absent: no CVA tenderness Respiratory: Present: lungs clear, normal breath sounds, no respiratory distress, no accessory muscle use, No rales, No wheezing Cardiovascular/Chest: Present: normal peripheral pulses, regular rate, rhythm, no chest tenderness, no edema, no JVD, no murmur. Absent: edema Peripheral Pulses: dorsalis-pedis (R): 1+, dorsalis-pedis (L): 1+ Abdomen: Present: Normal bowel sounds, soft, nontender, nondistended, no rebound tenderness, no hepatospenomegaly, no masses Extremity: Present: normal range of motion, non-tender, normal inspection, no pedal edema, no calf tenderness, slow capillary refill - 3-4 seconds Skin Exam: Present: cool/dry, pallor Neurologic: Present: steel fixer II-XII nml as tested, no motor/sensory deficits, alert, oriented x 3, aphasia - expressive, depressed affect, other - unable to asses gait, patient in bed and emotional and anxious. Absent: normal mood/affect, EOM palsy, facial droop, motor weakness, sensory deficit Appearance: Present: disheveled Eye contact: Present: good eye contact. Absent: normal speech - words appear to be jumbled or mumbling, slightly coherent Diagnostic Studies: Abnormal Lab Results 11/17/19 11/17/19 11/17/19 Range/Units 13:30 13:30 13:30 WBC 11.0 H (4.0-10.5) K/mm3 Immature Gran # (Auto) 0.04 H (0.000-0.0310) K/mm3 Lymphocytes % 19.3 L (20-51) % Neutrophils # 7.8 H (1.3-6.0) K/mm3 pCO2 (32.0-45.0) mmHg pO2 (83.0-108.0) mmHg HCO3 (21.0-28.0) mmol/L Total CO2 (19.0-24.0) mmol/L ABG pH (7.35-7.45) ABG O2 Sat (Measured) (94.0-98.0) % Anion Gap 18.1 H (6.8-13.8) mmol/L BUN 25 H (3-23) mg/dL Creatinine 1.49 H (0.4-1.4) mg/dL Est GFR (Non-Af Amer) 36 L (60-130) mL/min Random Glucose 206 H (70-110) mg/dL Lactic Acid, Venous 3.0 H* (0.4-2.0) mmol/L Magnesium 0.9 L (1.2-2.8) mg/dL ALT 14 L (19-67) U/L Albumin 3.3 L (3.4-5.0) gm/dl Urine Protein (NEGATIVE) mg/dL Urine Bilirubin (NEGATIVE) mg/dl Prot Sulfosalicylic Acd (0) mg/dL Ur Leukocyte Esterase (NEGATIVE) /ul Urine WBC (0-5) /hpf Urine Bacteria (NONE) 11/17/19 11/17/19 Range/Units 13:30 14:00 WBC (4.0-10.5) K/mm3 Immature Gran # (Auto) (0.000-0.0310) K/mm3 Lymphocytes % (20-51) % Neutrophils # (1.3-6.0) K/mm3 pCO2 16.5 L* (32.0-45.0) mmHg pO2 112.2 H (83.0-108.0) mmHg HCO3 17.6 L (21.0-28.0) mmol/L Total CO2 18.2 L (19.0-24.0) mmol/L ABG pH 7.65 H* (7.35-7.45) ABG O2 Sat (Measured) 98.9 H (94.0-98.0) % Anion Gap (6.8-13.8) mmol/L BUN (3-23) mg/dL Creatinine (0.4-1.4) mg/dL Est GFR (Non-Af Amer) (60-130) mL/min Random Glucose (70-110) mg/dL Lactic Acid, Venous (0.4-2.0) mmol/L Magnesium (1.2-2.8) mg/dL ALT (19-67) U/L Albumin (3.4-5.0) gm/dl Urine Protein 30 H (NEGATIVE) mg/dL Urine Bilirubin 1 H (NEGATIVE) mg/dl Prot Sulfosalicylic Acd 2+ H (0) mg/dL Ur Leukocyte Esterase 75 H (NEGATIVE) /ul Urine WBC 25-50 H (0-5) /hpf Urine Bacteria 3+ H (NONE) Laboratory Results WBC 11.0 K/mm3 (4.0-10.5) H 11/17/19 13:30 RBC 4.33 M/mm3 (4.2-5.4) 11/17/19 13:30 Hgb 13.2 gm/dL (12.5-16.0) 11/17/19 13:30 Hct 38.6 % (37.0-47.0) 11/17/19 13:30 MCV 89.1 fl (78-100) 11/17/19 13:30 MCH 30.5 pg (27-31) 11/17/19 13:30 MCHC 34.2 g/dl (32-36) 11/17/19 13:30 RDW 12.4 % (11.5-14.0) 11/17/19 13:30 Plt Count 384 K/mm3 (150-450) 11/17/19 13:30 MPV 8.9 fl (8-12.5) 11/17/19 13:30 Immature Gran % (Auto) 0.40 % (0.001-0.429) 11/17/19 13:30 Immature Gran # (Auto) 0.04 K/mm3 (0.000-0.0310) H 11/17/19 13:30 Neutrophils % 71.1 % (42-75.0) 11/17/19 13:30 Lymphocytes % 19.3 % (20-51) L 11/17/19 13:30 Monocytes % 7.3 % (0.0-9) 11/17/19 13:30 Eosinophils % 0.9 % (0.0-3.0) 11/17/19 13:30 Basophils % 1.0 % (0.0-1.0) 11/17/19 13:30 Nucleated RBC % 0.0 k/mm3 (0-1) 11/17/19 13:30 Neutrophils # 7.8 K/mm3 (1.3-6.0) H 11/17/19 13:30 Lymphocytes # 2.12 k/mm3 (1.5-3.5) 11/17/19 13:30 Monocytes # 0.8 k/mm3 (0.0-1.0) 11/17/19 13:30 Eosinophils # 0.1 k/mm3 (0.0-0.7) 11/17/19 13:30 Absolute Basophils 0.1 k/mm3 (0.0-0.1) 11/17/19 13:30 pCO2 16.5 mmHg (32.0-45.0) L* 11/17/19 14:00 pO2 112.2 mmHg (83.0-108.0) H 11/17/19 14:00 HCO3 17.6 mmol/L (21.0-28.0) L 11/17/19 14:00 Total CO2 18.2 mmol/L (19.0-24.0) L 11/17/19 14:00 Base Excess -0.6 mmol/L (-2.0-3.0) 11/17/19 14:00 ABG pH 7.65 (7.35-7.45) H* 11/17/19 14:00 ABG O2 Sat (Measured) 98.9 % (94.0-98.0) H 11/17/19 14:00 Sodium 137 mmol/L (132-142) 11/17/19 13:30 Plasma Sodium 139 mmol/L (130-142) 11/17/19 13:30 Potassium 4.1 mmol/L (3.4-4.6) D 11/17/19 13:30 Chloride 99 mmol/L (97-106) 11/17/19 13:30 Carbon Dioxide 24.0 mmol/L (24-32.6) 11/17/19 13:30 Anion Gap 18.1 mmol/L (6.8-13.8) H 11/17/19 13:30 BUN 25 mg/dL (3-23) H 11/17/19 13:30 Creatinine 1.49 mg/dL (0.4-1.4) H 11/17/19 13:30 Est GFR (Non-Af Amer) 36 mL/min (60-130) L 11/17/19 13:30 BUN/Creatinine Ratio 16.8 (9.0-21.6) 11/17/19 13:30 Random Glucose 206 mg/dL (70-110) H 11/17/19 13:30 Lactic Acid, Venous 3.0 mmol/L (0.4-2.0) H* 11/17/19 13:30 Calcium 8.7 mg/dL (7.9-10.9) 11/17/19 13:30 Calcium Adj for Albumin 8.9 mg/dL (8.4-10.2) 11/17/19 13:30 Magnesium 0.9 mg/dL (1.2-2.8) L 11/17/19 13:30 Total Bilirubin 0.5 mg/dL (0.0-1.1) 11/17/19 13:30 AST 17 U/L (0-48) 11/17/19 13:30 ALT 14 U/L (19-67) L 11/17/19 13:30 Alkaline Phosphatase 96 U/L (50-170) 11/17/19 13:30 Total Protein 7.6 gm/dL (6.2-8.2) 11/17/19 13:30 Albumin 3.3 gm/dl (3.4-5.0) L 11/17/19 13:30 Urine Color Yellow 11/17/19 13:30 Urine Appearance Cloudy (CLEAR) 11/17/19 13:30 Urine pH 6.0 pH (5.0-7.0) 11/17/19 13:30 Ur Specific [place] 1.025 SP.GR. (1.005-1.010) 11/17/19 13:30 Urine Protein 30 mg/dL (NEGATIVE) H 11/17/19 13:30 Urine Glucose (UA) Negative mg/dL (NEGATIVE) 11/17/19 13:30 Urine Ketones 15 mg/dL (NEGATIVE) 11/17/19 13:30 Urine Blood Negative /ul (NEGATIVE) 11/17/19 13:30 Urine Nitrate Negative (NEGATIVE) 11/17/19 13:30 Urine Bilirubin 1 mg/dl (NEGATIVE) H 11/17/19 13:30 Urine Ictotest Negative (NEGATIVE) 11/17/19 13:30 Prot Sulfosalicylic Acd 2+ mg/dL (0) H 11/17/19 13:30 Urine Urobilinogen Normal EU/dl (NORMAL) 11/17/19 13:30 Ur Leukocyte Esterase 75 /ul (NEGATIVE) H 11/17/19 13:30 Urine RBC None seen /hpf (0-5) 11/17/19 13:30 Urine WBC 25-50 /hpf (0-5) H 11/17/19 13:30 Ur Epithelial Cells None seen /hpf (0-5) 11/17/19 13:30 Urine Bacteria 3+ (NONE) H 11/17/19 13:30 Urine Culture Comments Culture to follow 11/17/19 13:30 Serum Ketones Negative (NEGATIVE) 11/17/19 13:30 Assessment/Plan - Narrative Narrative: - Assessment/Plan 1. Sepsis most likely secondary to UTI versus CAP concerning for end organ dysfunction with her presentation of Encephalopathy - qSOFA: 2 - Fluid resuscitated according to sepsis protocol - Now on mIVFS - Ceftriaxone 1gm Q24 H - Initial Lactic 3.0, repeat lactic 2.1, repeat Lactic in 4-6 hours. - Blood and Urine Cultures Pending - CBC in AM 2. UTI (urinary tract infection) - UA sent for culture - Results Pending 3. CAP suspected due to pleural effusion appreciated on CXR - Ceftriaxone with addition of Azithromycin will be adequate coverage - Repeat CXR in AM 4. Expressive Aphasia versus Encephalopathy most likely secondary to UTI versus CVA (less likely) - CT head ruled out acute bleed - Neuro checks Q4H - NIHSS : 2 - Patient can swallow - If symptoms of expressive aphasia persist, Speech therapy will be ordered in AM - With h/o CAD and NIDDM, will consider MRI and US of Carotids in AM, if symptoms do not resolve overnight - Allow permissive HTN 5. Dehydration - Continue Fluid resuscitation - On mIVFs 125 ml/hours x1 1L - CMP pending to evaluate pCO2, anion gap and renal function - CMP in AM 6. Hyperglycemia due to Non-insulin dependent type 2 diabetes mellitus - Insulin on LDSS TID with meals - Hold Metformin and Glipizide 7. CAD (coronary artery disease) - Continue Statin - Continue Aspirin 8. HLD (hyperlipidemia) - Continue Statin 9. Hypothyroidism - Cont. Levothyroxine 10. Hypertension - Allow permissive HTN 11. Major depression - Continue Venlafaxine FEN: Consistent Carbs, Low Salt Diet DVT PPX: Lovenox 40 mg SC Q24H CODE STATUS: FULL CODE DISPOSITION: - Will await EKG and Cardiac Panel, patient was complaining of CP, received aspirin 325mg, and nitro - Will re-evaluate neurological symptoms and consider Speech Therapy evaluation - Assessment/Plan (1) Sepsis Problem: Acute Qualifiers: Sepsis type: sepsis due to unspecified organism Sepsis acute organ dysfunction status: with acute organ dysfunction Severe sepsis acute organ dysfunction type: encephalopathy Severe sepsis shock status: without septic shock Qualified Code(s): A41.9 - Sepsis, unspecified organism; R65.20 - Severe sepsis without septic shock; G93.40 - Encephalopathy, unspecified (2) UTI (urinary tract infection) Problem: Acute Qualifiers: Urinary tract infection type: acute pyelonephritis Qualified Code(s): N10 - Acute pyelonephritis (3) Dehydration Problem: Acute (4) Hyperglycemia due to type 2 diabetes mellitus Problem: Acute Qualifiers: (5) CAD (coronary artery disease) Problem: Chronic Qualifiers: Coronary Disease-Associated Artery/Lesion type: bypass graft [place] vs. transplanted heart: [place] heart Associated angina: angina presence unspecified Qualified Code(s): I25.810 - Atherosclerosis of coronary artery bypass graft(s) without angina pectoris (6) HLD (hyperlipidemia) Problem: Chronic Qualifiers: Hyperlipidemia type: mixed hyperlipidemia Qualified Code(s): E78.2 - Mixed hyperlipidemia (7) Non-insulin dependent type 2 diabetes mellitus Problem: Chronic (8) Hypothyroidism Problem: Chronic Qualifiers: Hypothyroidism type: acquired Qualified Code(s): E03.9 - Hypothyroidism, unspecified (9) Hypertension Problem: Chronic Qualifiers: Hypertension type: essential hypertension Qualified Code(s): I10 - Essential (primary) hypertension (10) Major depression Problem: Chronic Qualifiers: Major depression recurrence: unspecified whether recurrent Active/Remission status: remission status unspecified Qualified Code(s): F32.9 - Major depressive disorder, single episode, unspecified
[2019-11-17] MEDS: ENOXAPARIN SODIUM 40 MG/0.4 ML SYRG SC SCH (16:25)
[2019-11-17] MEDS ORDERED: ASPIRIN 81 MG TAB.CHEW PO SCH (16:30)
[2019-11-17] MEDS: NITROGLYCERIN 0.4 MG/TAB BTL SL PRN ×2 (16:38→16:41)
[2019-11-17] MEDS ORDERED: ASPIRIN 81 MG TAB.CHEW PO ONE (17:00)
[2019-11-17 17:17] LABS: Anion Gap 15.9 mmol/L (6.8-13.8); BUN/Creatinine Ratio 17.5 (9.0-21.6); Blood Urea Nitrogen 21 mg/dL (3-23); Carbon Dioxide 24.9 mmol/L (24-32.6); Chloride 102 mmol/L (97-106); Glucose * 145 mg/dL (70-110); Potassium 3.8 mmol/L (3.4-4.6); Sodium 139 mmol/L (132-142)
[2019-11-17 17:18] LABS: ALT 16 U/L (19-67); AST 18 U/L (0-48); Albumin * 3.3 gm/dl (3.4-5.0); Alkaline Phosphatase * 92 U/L (50-170); Bilirubin, Total 0.4 mg/dL (0.0-1.1); CK Total * 90 U/L (0-259); CKMB 1.6 ng/mL (0.0-9.0); Ca. Corrected For Albumin 8.4 mg/dL (8.4-10.2); Calcium * 8.2 mg/dL (7.9-10.9); Total Protein 7.6 gm/dL (6.2-8.2); Troponin I Less than 0.017 ng/mL (0.00-0.10)
[2019-11-17] MEDS: INSULIN LISPRO 100 UNITS/ML VIAL SC SCH ×2 (17:32→20:42)
[2019-11-17] MEDS: AZITHROMYCIN 500 MG in DEXTROSE 5 % IN WATER 250 ML IV SCH ×2 (19:20)
[2019-11-17] MEDS: METOPROLOL TARTRATE 25 MG TABLET PO SCH (20:49)
[2019-11-17] MEDS: traMADol HCL 50 MG TABLET PO SCH (20:50)
[2019-11-17] MEDS: NORMAL SALINE 1,000 ML IV PRN (21:00)
[2019-11-18] MEDS: NORMAL SALINE 1,000 ML IV PRN (05:41)
[2019-11-18 06:29] LABS: Hematocrit 35.4 % (37.0-47.0); Mean Cell Volume 90.5 fl (78-100); Mean Corpuscular Hemoglobin 30.7 pg (27-31); Mean Corpuscular Hgb Conc 33.9 g/dl (32-36); Neutrophil # 5.8 K/mm3 (1.3-6.0); Neutrophil % 62.1 % (42-75.0); Platelet Count 354 K/mm3 (150-450); Red Blood Count 3.91 M/mm3 (4.2-5.4); Red Cell Distribution Width 12.6 % (11.5-14.0); White Blood Count 9.4 K/mm3 (4.0-10.5)
[2019-11-18 06:54] LABS: Albumin * 2.9 gm/dl (3.4-5.0); Anion Gap 11.1 mmol/L (6.8-13.8); BUN/Creatinine Ratio 15.3 (9.0-21.6); Bilirubin, Total 0.3 mg/dL (0.0-1.1); Ca. Corrected For Albumin 8.6 mg/dL (8.4-10.2); Carbon Dioxide 25.6 mmol/L (24-32.6); Potassium 3.7 mmol/L (3.4-4.6); Total Protein 6.7 gm/dL (6.2-8.2)
--- NOTE | 2019-11-18 07:02 | PN ---
Subjective - Date and Time Seen Date: 11/18/19 Time: 07:02 Subjective Narrative: No acute events overnight. No expressive aphasia or encephalopathy. A0X3. Intake and output at baseline. C/O nausea, ordered zofran PRN. Discussed management with patient. Objective - Review of Systems Generalized/Overall Review: Reports: Weakness, Fatigue Respiratory: Denies: Shortness of Breath Cardiac: Denies: Chest Pain, Edema Abdominal: Reports: Nausea. Denies: Vomiting, Abdominal Pain Genitourinary Symptoms: Denies: Burning, Itching, Urgency, Frequency Musculoskeletal Complaints: Denies: Joint Pain, Back Pain, Joint Swelling Neurological: Reports: Anxiety, Depressed - Vitals Vitals: Last Vital Signs Temp 36.6 C 11/18/19 04:00 Pulse 90 11/18/19 04:00 Resp 20 11/18/19 04:00 BP 155/67 H 11/18/19 04:00 Pulse Ox 96 11/18/19 04:00 - Abnormal Lab Findings Abnormal Lab Findings: Abnormal Lab Results 11/17/19 11/17/19 11/17/19 Range/Units 13:30 13:30 13:30 WBC 11.0 H (4.0-10.5) K/mm3 RBC (4.2-5.4) M/mm3 Hgb (12.5-16.0) gm/dL Hct (37.0-47.0) % Immature Gran % (Auto) (0.001-0.429) % Immature Gran # (Auto) 0.04 H (0.000-0.0310) K/mm3 Lymphocytes % 19.3 L (20-51) % Monocytes % (0.0-9) % Neutrophils # 7.8 H (1.3-6.0) K/mm3 pCO2 (32.0-45.0) mmHg pO2 (83.0-108.0) mmHg HCO3 (21.0-28.0) mmol/L Total CO2 (19.0-24.0) mmol/L ABG pH (7.35-7.45) ABG O2 Sat (Measured) (94.0-98.0) % Chloride (97-106) mmol/L Anion Gap 18.1 H (6.8-13.8) mmol/L BUN 25 H (3-23) mg/dL Creatinine 1.49 H (0.4-1.4) mg/dL Est GFR (Non-Af Amer) 36 L (60-130) mL/min Random Glucose 206 H (70-110) mg/dL Lactic Acid, Venous 3.0 H* (0.4-2.0) mmol/L Magnesium 0.9 L (1.2-2.8) mg/dL ALT 14 L (19-67) U/L Albumin 3.3 L (3.4-5.0) gm/dl Urine Protein (NEGATIVE) mg/dL Urine Bilirubin (NEGATIVE) mg/dl Prot Sulfosalicylic Acd (0) mg/dL Ur Leukocyte Esterase (NEGATIVE) /ul Urine WBC (0-5) /hpf Urine Bacteria (NONE) 11/17/19 11/17/19 11/17/19 Range/Units 13:30 14:00 16:49 WBC (4.0-10.5) K/mm3 RBC (4.2-5.4) M/mm3 Hgb (12.5-16.0) gm/dL Hct (37.0-47.0) % Immature Gran % (Auto) (0.001-0.429) % Immature Gran # (Auto) (0.000-0.0310) K/mm3 Lymphocytes % (20-51) % Monocytes % (0.0-9) % Neutrophils # (1.3-6.0) K/mm3 pCO2 16.5 L* (32.0-45.0) mmHg pO2 112.2 H (83.0-108.0) mmHg HCO3 17.6 L (21.0-28.0) mmol/L Total CO2 18.2 L (19.0-24.0) mmol/L ABG pH 7.65 H* (7.35-7.45) ABG O2 Sat (Measured) 98.9 H (94.0-98.0) % Chloride (97-106) mmol/L Anion Gap (6.8-13.8) mmol/L BUN (3-23) mg/dL Creatinine (0.4-1.4) mg/dL Est GFR (Non-Af Amer) (60-130) mL/min Random Glucose (70-110) mg/dL Lactic Acid, Venous 2.1 H (0.4-2.0) mmol/L Magnesium (1.2-2.8) mg/dL ALT (19-67) U/L Albumin (3.4-5.0) gm/dl Urine Protein 30 H (NEGATIVE) mg/dL Urine Bilirubin 1 H (NEGATIVE) mg/dl Prot Sulfosalicylic Acd 2+ H (0) mg/dL Ur Leukocyte Esterase 75 H (NEGATIVE) /ul Urine WBC 25-50 H (0-5) /hpf Urine Bacteria 3+ H (NONE) 11/17/19 11/18/19 11/18/19 Range/Units 16:49 06:26 06:26 WBC (4.0-10.5) K/mm3 RBC 3.91 L (4.2-5.4) M/mm3 Hgb 12.0 L (12.5-16.0) gm/dL Hct 35.4 L (37.0-47.0) % Immature Gran % (Auto) 0.50 H (0.001-0.429) % Immature Gran # (Auto) 0.05 H (0.000-0.0310) K/mm3 Lymphocytes % (20-51) % Monocytes % 9.9 H (0.0-9) % Neutrophils # (1.3-6.0) K/mm3 pCO2 (32.0-45.0) mmHg pO2 (83.0-108.0) mmHg HCO3 (21.0-28.0) mmol/L Total CO2 (19.0-24.0) mmol/L ABG pH (7.35-7.45) ABG O2 Sat (Measured) (94.0-98.0) % Chloride 108 H (97-106) mmol/L Anion Gap 15.9 H (6.8-13.8) mmol/L BUN (3-23) mg/dL Creatinine (0.4-1.4) mg/dL Est GFR (Non-Af Amer) 47 L D 51 L (60-130) mL/min Random Glucose 145 H (70-110) mg/dL Lactic Acid, Venous (0.4-2.0) mmol/L Magnesium (1.2-2.8) mg/dL ALT 16 L 14 L (19-67) U/L Albumin 3.3 L 2.9 L (3.4-5.0) gm/dl Urine Protein (NEGATIVE) mg/dL Urine Bilirubin (NEGATIVE) mg/dl Prot Sulfosalicylic Acd (0) mg/dL Ur Leukocyte Esterase (NEGATIVE) /ul Urine WBC (0-5) /hpf Urine Bacteria (NONE) - EKG/Xray Findings EKG: RBBB - incomplete,, other - Junctional tachycardia EKG read: Interp. by me XRAY: chest Interpretation: Reviewed by me - Exam Constitutional: Present: Alert, Oriented x3, Cooperative ENT Exam: Present: hearing grossly normal Neck: Present: non-tender, full range of motion, supple Respiratory: Present: lungs clear, normal breath sounds, no accessory muscle use, No rales, No wheezing Cardiovascular/Chest: Present: normal peripheral pulses, regular rate, rhythm, no chest tenderness, no edema, no JVD, no murmur Abdomen: Present: Normal bowel sounds, soft, nontender, nondistended Extremity: Present: normal range of motion, non-tender, normal inspection, no pedal edema, no calf tenderness Skin Exam: Present: normal color, warm/dry Neurologic: Present: alert, oriented x 3. Absent: aphasia Appearance: Present: appropriate appearance Eye contact: Present: cooperative, good eye contact Thoughts: Present: normal thought pattern Assessment/Plan Plan Narrative: Assessment/Plan - Narrative Narrative: - Assessment/Plan 1. Sepsis with encephalopathy resolved - Leukocytosis resolved - Lactate trended down - D/C mIVFs 2. UTI (urinary tract infection) - UA sent for culture - Results Pending 3. CAP suspected due to pleural effusion appreciated on CXR - Continue Ceftriaxone and Azithromycin - Transition to PO in AM 4. Expressive Aphasia versus Encephalopathy- Resolved - D/C neuro checks 5. Dehydration - Resolved - d/c mIVFs 6. Hyperglycemia due to Non-insulin dependent type 2 diabetes mellitus - Continue Insulin on LDSS TID with meals 7. CAD (coronary artery disease) - Continue Statin - Continue Aspirin 8. HLD (hyperlipidemia) - Continue Statin 9. Hypothyroidism - Cont. Levothyroxine 10. Hypertension - Continue home medication of metoprolol 11. Major depression - Continue Venlafaxine FEN: Consistent Carbs, Low Salt Diet DVT PPX: Lovenox 40 mg SC Q24H CODE STATUS: FULL CODE DISPOSITION: - Anticipate discharge tomorrow morning - Problems/Diagnosis (1) Sepsis Problem: Acute Qualifiers: Sepsis type: sepsis due to unspecified organism Sepsis acute organ dysfunction status: with acute organ dysfunction Severe sepsis acute organ dysfunction type: encephalopathy Severe sepsis shock status: without septic shock Qualified Code(s): A41.9 - Sepsis, unspecified organism; R65.20 - Severe sepsis without septic shock; G93.40 - Encephalopathy, unspecified (2) UTI (urinary tract infection) Problem: Acute Qualifiers: Urinary tract infection type: acute pyelonephritis Qualified Code(s): N10 - Acute pyelonephritis (3) Dehydration Problem: Acute (4) Hyperglycemia due to type 2 diabetes mellitus Problem: Acute Qualifiers: (5) CAD (coronary artery disease) Problem: Chronic Qualifiers: Coronary Disease-Associated Artery/Lesion type: bypass graft [place] vs. transplanted heart: [place] heart Associated angina: angina presence unspecified Qualified Code(s): I25.810 - Atherosclerosis of coronary artery bypass graft(s) without angina pectoris (6) HLD (hyperlipidemia) Problem: Chronic Qualifiers: Hyperlipidemia type: mixed hyperlipidemia Qualified Code(s): E78.2 - Mixed hyperlipidemia (7) Non-insulin dependent type 2 diabetes mellitus Problem: Chronic (8) Hypothyroidism Problem: Chronic Qualifiers: Hypothyroidism type: acquired Qualified Code(s): E03.9 - Hypothyroidism, unspecified (9) Hypertension Problem: Chronic Qualifiers: Hypertension type: essential hypertension Qualified Code(s): I10 - Essential (primary) hypertension (10) Major depression Problem: Chronic Qualifiers: Major depression recurrence: unspecified whether recurrent Active/Remission status: remission status unspecified Qualified Code(s): F32.9 - Major depressive disorder, single episode, unspecified
[2019-11-18] MEDS: INSULIN LISPRO 100 UNITS/ML VIAL SC SCH ×4 (07:48→20:13)
[2019-11-18] MEDS: LEVOTHYROXINE SODIUM 75 MCG TABLET PO SCH (08:05)
[2019-11-18] MEDS ORDERED: ONDANSETRON 4 MG TAB.RAPDIS PO PRN (08:08)
[2019-11-18] MEDS: ROSUVASTATIN CALCIUM 20 MG TABLET PO SCH (10:04)
[2019-11-18] MEDS: ASPIRIN 81 MG TAB.CHEW PO SCH (10:05)
[2019-11-18] MEDS: METOPROLOL TARTRATE 25 MG TABLET PO SCH ×2 (10:05→20:12)
[2019-11-18] MEDS: traMADol HCL 50 MG TABLET PO SCH ×3 (10:05→20:16)
[2019-11-18] MEDS ORDERED: ONDANSETRON HCL/PF 2 MG/ML VIAL IV PRN (10:30)
[2019-11-18] MEDS: PROMETHAZINE HCL 25 MG TABLET PO PRN ×2 (11:02→19:12)
[2019-11-18] MEDS: ENOXAPARIN SODIUM 40 MG/0.4 ML SYRG SC SCH (16:04)
[2019-11-18] MEDS: AZITHROMYCIN 500 MG in DEXTROSE 5 % IN WATER 250 ML IV SCH ×2 (18:48)
[2019-11-18] MEDS: SUCRALFATE 1 G TABLET PO SCH (20:12)
[2019-11-19 06:03] LABS: Hematocrit 35.6 % (37.0-47.0); Hemoglobin 11.8 gm/dL (12.5-16.0); Mean Corpuscular Hemoglobin 30.2 pg (27-31); Mean Corpuscular Hgb Conc 33.1 g/dl (32-36); Mean Platelet Volume 9.2 fl (8-12.5); Neutrophil # 4.9 K/mm3 (1.3-6.0); Neutrophil % 60.3 % (42-75.0); Platelet Count 342 K/mm3 (150-450); Red Blood Count 3.91 M/mm3 (4.2-5.4); Red Cell Distribution Width 12.7 % (11.5-14.0); White Blood Count 8.1 K/mm3 (4.0-10.5)
[2019-11-19 06:16] LABS: Albumin * 2.8 gm/dl (3.4-5.0); Anion Gap 10.6 mmol/L (6.8-13.8); BUN/Creatinine Ratio 12.5 (9.0-21.6); Bilirubin, Total 0.2 mg/dL (0.0-1.1); Ca. Corrected For Albumin 8.9 mg/dL (8.4-10.2); Calcium * 8.3 mg/dL (7.9-10.9); Carbon Dioxide 29.1 mmol/L (24-32.6); Potassium 3.7 mmol/L (3.4-4.6); Total Protein 6.5 gm/dL (6.2-8.2)
[2019-11-19] MEDS: INSULIN LISPRO 100 UNITS/ML VIAL SC SCH (06:32)
[2019-11-19] MEDS: LEVOTHYROXINE SODIUM 75 MCG TABLET PO SCH (06:40)
[2019-11-19] MEDS ORDERED: CEFUROXIME AXETIL 500 MG TABLET PO SCH (07:30)
--- NOTE | 2019-11-19 07:52 | DS ---
(1) Sepsis Problem: Acute Qualifiers: Sepsis type: sepsis due to unspecified organism Sepsis acute organ dysfunction status: with acute organ dysfunction Severe sepsis acute organ dysfunction type: encephalopathy Severe sepsis shock status: without septic shock Qualified Code(s): A41.9 - Sepsis, unspecified organism; R65.20 - Severe sepsis without septic shock; G93.40 - Encephalopathy, unspecified (2) UTI (urinary tract infection) Problem: Acute Qualifiers: Urinary tract infection type: acute pyelonephritis Qualified Code(s): N10 - Acute pyelonephritis (3) Dehydration Problem: Acute (4) Hyperglycemia due to type 2 diabetes mellitus Problem: Acute Qualifiers: (5) CAD (coronary artery disease) Problem: Chronic Qualifiers: Coronary Disease-Associated Artery/Lesion type: bypass graft [place] vs. transplanted heart: [place] heart Associated angina: angina presence unspecifie d Qualified Code(s): I25.810 - Atherosclerosis of coronary artery bypass graft(s) without angina pectoris (6) HLD (hyperlipidemia) Problem: Chronic Qualifiers: Hyperlipidemia type: mixed hyperlipidemia Qualified Code(s): E78.2 - Mixed hyperlipidemia (7) Non-insulin dependent type 2 diabetes mellitus Problem: Chronic (8) Hypothyroidism Problem: Chronic Qualifiers: Hypothyroidism type: acquired Qualified Code(s): E03.9 - Hypothyroidism, unspecified (9) Hypertension Problem: Chronic Qualifiers: Hypertension type: essential hypertension Qualified Code(s): I10 - Essential (primary) hypertension (10) Major depression Problem: Chronic Qualifiers: Major depression recurrence: unspecified whether recurrent Active/Remission status: remission status unspecified Qualified Code(s): F32.9 - Major depressive disorder, single episode, unspecified (11) Acute gastritis Problem: Acute Qualifiers: Gastritis type: unspecified gastritis Gastritis bleeding: without bleeding Qualified Code(s): K29.00 - Acute gastritis without bleeding Date of Discharge:: 11/19/19 Hospital Course: 73 y/o F with PMHX of CAD s/p triple vessel bypass, NIDDM Type II, HTN, HLD, MDD, & GABRIEL Admitted for Sepsis with acute organ dysfunction of metabolic encephalopathy most likely secondary to UTI and suspected Community Acquired Pneumonia. Patient was worked up for acute CVA and Sepsis. CT head ruled out acute bleed. Labs significant for Lactic Acid of 3.0, [place] [address], Hyperglycemia of 204, Dehydration due to and mild increase in Cr from baseline of 1.30 to 1.43, ABG showed pCO2 of 16, UA demonstrated infection and CXR suggested small left sided pleural effusion. Due to her presentation and an increased anion gap along with her history of NIDDM Type II, DKA was ruled out, no ketones appreciated on labs. Managed and fluid resuscitated according to sepsis protocol, and started on Rocephin 1 gram q24h and Azithromycin 500 mg IV q24h. Metabolic encephalopathy resolved within 24 hours. Switched to Cefuroxime and Azithromycin for 3 days upon discharge. Developed acute gastritis due to continous emesis. Started on famotidine and Sucralfate. Continue medications at home Gill Saldaña is homebound due to weakness and dementia and inability to operate a vehicle. The need for chcf is for medication management and the need for physical therapy is for strengthening and endurance Procedures Performed: none Care Plan Goals: Complete antibiotic course Start famotidine and sucralfate for acute gastritis Plan of Treatment: Cefuroxime 500mg x 3 days for UTI Azithromycin 250mg x 3 for CAP Health Concerns: Medication Management Assessment: Sepsis with acute organ dysfunction most likely secondary to UTI and CAP -Metabolic Encephalopathy -Prerenal injury Results and Findings: Pending Mircobiology Results 11/17/19 14:02 Blood Blood Culture - Preliminary NO GROWTH 24 HOURS 11/17/19 13:30 Blood Blood Culture - Preliminary NO GROWTH 24 HOURS Lab Pending Results 11/17/19 13:30: WBC 11.0 H, RBC 4.33, Hgb 13.2, Hct 38.6, MCV 89.1, MCH 30.5, MC HC 34.2, RDW 12.4, Plt Count 384, MPV 8.9, Immature Gran % (Auto) 0.40, Immature Gran # (Auto) 0.04 H, Neutrophils % 71.1, Lymphocytes % 19.3 L, Monocytes % 7.3, Eosinophils % 0.9, Basophils % 1.0, Nucleated RBC % 0.0, Neutrophils # 7.8 H, Lymphocytes # 2.12, Monocytes # 0.8, Eosinophils # 0.1, Absolute Basophils 0.1 11/17/19 13:30: Sodium 137, Plasma Sodium 139, Potassium 4.1 D, Chloride 99, Carbon Dioxide 24.0, Anion Gap 18.1 H, BUN 25 H, Creatinine 1.49 H, Est GFR (Non-Af Amer) 36 L, BUN/Creatinine Ratio 16.8, Random Glucose 206 H, Calcium 8.7, Calcium Adj for Albumin 8.9, Magnesium 0.9 L, Total Bilirubin 0.5, AST 17, ALT 14 L, Alkaline Phosphatase 96, Total Protein 7.6, Albumin 3.3 L, Serum Ketones Negative 11/17/19 13:30: Lactic Acid, Venous 3.0 H* 11/17/19 13:30: Urine Color Yellow, Urine Appearance Cloudy, Urine pH 6.0, Ur Specific [place] 1.025, Urine Protein 30 H, Urine Glucose (UA) Negative, Urine Ketones 15, Urine Blood Negative, Urine Nitrate Negative, Urine Bilirubin 1 H, Urine Ictotest Negative, Prot Sulfosalicylic Acd 2+ H, Urine Urobilinogen Normal, Ur Leukocyte Esterase 75 H, Urine RBC None seen, Urine WBC 25-50 H, Ur Epithelial Cells None seen, Urine Bacteria 3+ H, Urine Culture Comments Culture to follow 11/17/19 14:00: pCO2 16.5 L*, pO2 112.2 H, HCO3 17.6 L, Total CO2 18.2 L, Base Excess -0.6, ABG pH 7.65 H*, ABG O2 Sat (Measured) 98.9 H 11/17/19 16:49: Lactic Acid, Venous 2.1 H 11/17/19 16:49: Sodium 139, Plasma Sodium 140, Potassium 3.8, Chloride 102, Carbon Dioxide 24.9, Anion Gap 15.9 H, BUN 21, Creatinine 1.20, Est GFR (Non-Af Amer) 47 L D, BUN/Creatinine Ratio 17.5, Random Glucose 145 H, Calcium 8.2, Calcium Adj for Albumin 8.4, Total Bilirubin 0.4, AST 18, ALT 16 L, Alkaline Phosphatase 92, Creatine Kinase 90, CK-MB (CK-2) 1.6, CK-MB (CK-2) Rel Index 1.8, Troponin I Less than 0.017, Total Protein 7.6, Albumin 3.3 L 11/17/19 21:00: Lactic Acid, Venous 2.0 11/18/19 06:26: WBC 9.4, RBC 3.91 L, Hgb 12.0 L, Hct 35.4 L, MCV 90.5, MCH 30.7, MCHC 33.9, RDW 12.6, Plt Count 354, MPV 9.0, Immature Gran % (Auto) 0.50 H, Immature Gran # (Auto) 0.05 H, Neutrophils % 62.1, Lymphocytes % 24.0, Monocytes % 9.9 H, Eosinophils % 2.6, Basophils % 0.9, Nucleated RBC % 0.0, Neutrophils # 5.8, Lymphocytes # 2.24, Monocytes # 0.9, Eosinophils # 0.2, Absolute Basophils 0.1 11/18/19 06:26: Sodium 141, Plasma Sodium 141, Potassium 3.7, Chloride 108 H, Carbon Dioxide 25.6, Anion Gap 11.1, BUN 17, Creatinine 1.11, Est GFR (Non-Af Amer) 51 L, BUN/Creatinine Ratio 15.3, Random Glucose 99 D, Calcium 8.0, Calcium Adj for Albumin 8.6, Total Bilirubin 0.3, AST 18, ALT 14 L, Alkaline Phosphatase 81, Total Protein 6.7, Albumin 2.9 L 11/19/19 05:05: WBC 8.1, RBC 3.91 L, Hgb 11.8 L, Hct 35.6 L, MCV 91.0, MCH 30.2, MCHC 33.1, RDW 12.7, Plt Count 342, MPV 9.2, Immature Gran % (Auto) 0.50 H, Immature Gran # (Auto) 0.04 H, Neutrophils % 60.3, Lymphocytes % 24.1, Monocytes % 9.1 H, Eosinophils % 4.8 H, Basophils % 1.2 H, Nucleated RBC % 0.0, Neutrophils # 4.9, Lymphocytes # 1.95, Monocytes # 0.7, Eosinophils # 0.4, Absolute Basophils 0.1 11/19/19 05:05: Sodium 142, Plasma Sodium 143 H, Potassium 3.7, Chloride 106, Carbon Dioxide 29.1, Anion Gap 10.6, BUN 16, Creatinine 1.28, Est GFR (Non-Af Amer) 43 L, BUN/Creatinine Ratio 12.5, Random Glucose 184 H D, Calcium 8.3, Calcium Adj for Albumin 8.9, Total Bilirubin 0.2, AST 18, ALT 15 L, Alkaline Phosphatase 79, Total Protein 6.5, Albumin 2.8 L Discharge Location: Home Disposition: Home Health Service [place] Agency: [facility] Home Health Condition: Fair Face to Face Encounter completed per [facility] Guidelines: Yes - howard Saldaña is homebound due to weakness and dementia and inability to operat Discharge Activity: Activity as tolerated - ambulate with assistance Discharge Diet: Consistent carbs, Low salt Referrals: Navin Cosby MD [Primary Care Provider] - One Week Complete Home Medications List: Complete Home Medication List: Atorvastatin Calcium [Lipitor] 80 mg PO DAILY 10/27/18 traMADol HCL [Tramadol HCl] 50 mg PO BID 10/27/18 Aspirin [Aspirin Chewable] 81 mg PO DAILY 11/17/19 Levothyroxine Sodium [Synthroid] 75 mcg PO DAILY 11/17/19 Metoprolol Tartrate [Lopressor] 25 mg PO BID 11/17/19 Venlafaxine HCl [Venlafaxine HCl ER] 150 mg PO DAILY 11/17/19 glipiZIDE [Glipizide] 10 mg PO HS 11/17/19 glipiZIDE [Glipizide] 20 mg PO DAILY 11/17/19 metFORMIN HCL [Metformin ER Osmotic] 500 mg PO BID 11/17/19 Acetaminophen [Tylenol] 650 mg PO Q6H PRN tablet 11/19/19 Azithromycin [Zithromax] 250 mg PO DAILY 3 Days #3 tab 11/19/19 Cefuroxime Axetil [Ceftin] 500 mg PO Q12H 3 Days #6 tab 11/19/19 Famotidine [Pepcid] 20 mg PO BID #60 tab 11/19/19 Sucralfate [Carafate] 1 g PO BID #60 tab 11/19/19
[2019-11-19] MEDS: ASPIRIN 81 MG TAB.CHEW PO SCH (08:44)
[2019-11-19] MEDS: SUCRALFATE 1 G TABLET PO SCH (08:44)
[2019-11-19] MEDS: METOPROLOL TARTRATE 25 MG TABLET PO SCH (08:44)
[2019-11-19] MEDS: ROSUVASTATIN CALCIUM 20 MG TABLET PO SCH (08:44)
[2019-11-19] MEDS: traMADol HCL 50 MG TABLET PO SCH (08:45)
[2019-11-19] MEDS ORDERED: FAMOTIDINE 20 MG TABLET PO SCH (09:00)
[2019-11-19] MEDS ORDERED: AZITHROMYCIN 250 MG TABLET PO SCH (09:00)
[2019-11-19 10:59] VITALS: BP 151/71
== END 2019-11-19 11:10 | disposition home health service (06) | DRG 871 ==
LOC: ER 13:04 → MS 14:36
PROVIDERS: ADMIT Family Medicine; ATTEND Family Medicine
DX: N10 Acute pyelonephritis; G93.41 Metabolic encephalopathy; Z87.891 Personal history of nicotine dependence; B96.1 Klebsiella pneumoniae [K. pneumoniae] as the cause of diseases classified elsewhere; J18.9 Pneumonia, unspecified organism; E03.9 Hypothyroidism, unspecified; I11.9 Hypertensive heart disease without heart failure; E11.65 Type 2 diabetes mellitus with hyperglycemia; Z95.1 Presence of aortocoronary bypass graft; A41.9 Sepsis, unspecified organism; I25.10 Atherosclerotic heart disease of native coronary artery without angina pectoris; R65.20 Severe sepsis without septic shock; E86.0 Dehydration; R41.82 Altered mental status, unspecified; F32.9 Major depressive disorder, single episode, unspecified; K29.00 Acute gastritis without bleeding
CPT/HCPCS: 36415; 36600; 70450; 71010; 71045; 80053; 81001; 82009; 82550; 82553; 82803; 83605; 83735; 84484; 85025; 87040; 87086; 93005; 96361; 96365; 96375; 99285; 99291; J2405